=== PATIENT | male | born 1980 | race Caucasian/White ===

== ENCOUNTER 2017-07-06 15:30 | Emergency (ER) | payer SELFPAY ==
[~2017-07-06] VITALS: Ht 180.3 cm; Wt 83.0 kg
[2017-07-06 15:32] VITALS: BP 107/57; PULSE 80; RESP 17; TEMP 98.4; O2SAT 98
== END 2017-07-06 17:00 | disposition left against medical advice (07) ==
LOC: NED 15:30
DX: M79.606 Pain in leg, unspecified (principal); Z53.21 Procedure and treatment not carried out due to patient leaving prior to being seen by health care provider
CPT/HCPCS: 99281

== ENCOUNTER 2017-07-19 09:10 | Emergency (ER) | payer SELFPAY ==
[~2017-07-19] VITALS: Ht 185.4 cm; Wt 82.0 kg
--- NOTE | 2017-07-19 10:24 | PD ---
HPI Chief Complaint: Psychiatric Symptoms Time Seen by Provider: :33 Travel History International Travel<30 days: No Contact w/Intl Traveler<30days: No Traveled to known affect area: No History of Present Illness HPI 37-year-old male presents to the ED seeking voluntary psychiatric evaluation. Patient endorses psychiatric history of schizophrenia. He states he has not taken any medication since February. He states that he has been homeless for the same period of time. He states that he has been hearing voices. The voices do not direct him to commit any acts. He endorses suicidal ideation without a specific plan. He states that he feels as if he has been betrayed. He denies any alcohol use or illicit drug use. Denies any somatic complaints. PFSH Past Medical History ?: Not Social History Tobacco Use: Yes Allergies-Medications Reported Meds & Prescriptions Reported Meds & Active Scripts Active Reported Invega Trinza Inj (Paliperidone Palmitate) 273 Mg/0.875 Ml Inj 273 Mg IM Q90D Buspirone (Buspirone HCl) 5 Mg Tab 5 Mg PO BID Review of Systems Except as stated in HPI: all other systems reviewed are Neg Physical Exam Narrative GENERAL: Well-nourished, well-developed white male no acute distress. PSYCH: Somewhat disorganized. Cooperative. SKIN: Focused skin assessment warm/dry. HEAD: Normocephalic. EYES: No scleral icterus. No injection or drainage. NECK: Supple, trachea midline. No JVD or lymphadenopathy. CARDIOVASCULAR: Regular rate and rhythm without murmurs, gallops, or rubs. RESPIRATORY: Breath sounds clear and equal bilaterally. No accessory muscle use. GASTROINTESTINAL: Abdomen soft, non-tender, nondistended. Active bowel sounds. MUSCULOSKELETAL: No cyanosis, or edema. Walks with a normal gait. BACK: Nontender without obvious deformity. No CVA tenderness. Data Data Last Documented VS Vital Signs Date Time Temp Pulse Resp B/P (MAP) Pulse Ox O2 Delivery O2 Flow Rate FiO2 07/19/17 17:32 07/19/17 14:23 58 16 98 Room Air Orders Orders Complete Blood Count With Diff (07/19/17 09:33) Comprehensive Metabolic Panel (07/19/17 09:33) Thyroid Stimulating Hormone (07/19/17 09:33) Psych Screen (07/19/17 09:33) Drug Screen, Random Urine (07/19/17 09:33) Alcohol (Ethanol) (07/19/17 09:33) Diet Regular Basic (07/19/17 Lunch) Diet Regular Basic (07/19/17 Dinner) Labs Laboratory Tests Test 07/19/17 09:50 07/19/17 11:33 White Blood Count 9.4 TH/MM3 Red Blood Count 5.54 MIL/MM3 Hemoglobin 16.9 GM/DL Hematocrit 49.5 % Mean Corpuscular Volume 89.5 FL Mean Corpuscular Hemoglobin 30.5 PG Mean Corpuscular Hemoglobin Concent 34.1 % Red Cell Distribution Width 13.3 % Platelet Count 236 TH/MM3 Mean Platelet Volume 9.2 FL Neutrophils (%) (Auto) 71.6 % Lymphocytes (%) (Auto) 21.1 % Monocytes (%) (Auto) 5.8 % Eosinophils (%) (Auto) 1.1 % Basophils (%) (Auto) 0.4 % Neutrophils # (Auto) 6.7 TH/MM3 Lymphocytes # (Auto) 2.0 TH/MM3 Monocytes # (Auto) 0.5 TH/MM3 Eosinophils # (Auto) 0.1 TH/MM3 Basophils # (Auto) 0.0 TH/MM3 CBC Comment DIFF FINAL Differential Comment Blood Urea Nitrogen 15 MG/DL Creatinine 0.96 MG/DL Random Glucose 87 MG/DL Total Protein 6.8 GM/DL Albumin 4.0 GM/DL Calcium Level 9.0 MG/DL Alkaline Phosphatase 60 U/L Aspartate Amino Transf (AST/SGOT) 15 U/L Alanine Aminotransferase (ALT/SGPT) 21 U/L Total Bilirubin 0.3 MG/DL Sodium Level 141 MEQ/L Potassium Level 4.2 MEQ/L Chloride Level 105 MEQ/L Carbon Dioxide Level 27.5 MEQ/L Anion Gap 9 MEQ/L Estimat Glomerular Filtration Rate 87 ML/MIN Thyroid Stimulating Hormone 3rd Gen 1.440 uIU/ML Ethyl Alcohol Level LESS THAN 3 MG/DL Urine Opiates Screen NEG Urine Barbiturates Screen NEG Urine Amphetamines Screen NEG Urine Benzodiazepines Screen NEG Urine Cocaine Screen NEG Urine Cannabinoids Screen NEG MDM Medical Decision Making Medical Screen Exam Complete: Yes Emergency Medical Condition: Yes Differential Diagnosis Adjustment disorder versus anxiety versus bipolar versus depression versus dementia versus electrolyte disorder versus malingering versus mood disorder versus ODD versus psychosis versus PTSD versus schizophrenia versus schizoaffective disorder versus substance-induced mood disorder versus other Narrative Course 37-year-old male with PMH of schizophrenia presents to the ED for voluntary psychiatric evaluation. He endorses suicidal ideation with no specific plan. Denies somatic complaints. Physical exam is unremarkable. Lab work without concerning abnormalities. Tox screen negative. Patient is medically clear for psychiatric evaluation. 1740 2 PM: Patient was evaluated by Raquel Stubbs, senior brand manager. Patient is deemed clear for discharge. He is diagnosed with schizophrenia and follow-up as planned with act. Patient is stable and discharged home. Diagnosis Primary Impression: Medical clearance for psychiatric admission Additional Impression: Schizophrenia Qualified Codes: F20.9 - Schizophrenia, unspecified Referrals: [facility] Additional Instructions: Follow-up with act as discussed. Return to the ED for any urgent or emergent medical condition. Disposition: 01 DISCHARGE HOME Condition: Stable Elvira Deleon July 19, 2017 10:24
[2017-07-19 10:27] LABS: AUTOMATED NEUTROPHIL # 6.7 TH/MM3 (1.8-7.7); BASOPHIL % 0.4 % (0.0-2.0); EOSINOPHIL # 0.1 TH/MM3 (0-0.4); EOSINOPHIL % 1.1 % (0.0-4.0); HEMATOCRIT 49.5 % (39.0-51.0); HEMOGLOBIN 16.9 GM/DL (13.0-17.0); LYMPH % 21.1 % (9.0-44.0); MEAN CELL VOLUME 89.5 FL (80.0-100.0); MEAN CORPUSCULAR HEMOGLOBIN 30.5 PG (27.0-34.0); MEAN CORPUSCULAR HGB CONC 34.1 % (32.0-36.0); MEAN PLATELET VOLUME 9.2 FL (7.0-11.0); MONO % 5.8 % (0.0-8.0); MONOCYTE # 0.5 TH/MM3 (0-0.9); NEUT % 71.6 % (16.0-70.0); PLATELET COUNT 236 TH/MM3 (150-450); RED BLOOD COUNT 5.54 MIL/MM3 (4.50-5.90); RED CELL DISTRIBUTION WIDTH 13.3 % (11.6-17.2)
[2017-07-19 10:29] LABS: WHITE BLOOD COUNT 9.4 TH/MM3 (4.0-11.0)
[2017-07-19] MEDS ORDERED: PALI1INJ IM (10:55)
[2017-07-19] MEDS ORDERED: BUSP5TAB PO (10:55)
[2017-07-19 11:06] LABS: ALKALINE PHOSPHATASE 60 U/L (45-117); AST (GOT) 15 U/L (15-37); BICARBONATE 27.5 MEQ/L (21.0-32.0); CHLORIDE 105 MEQ/L (98-107); CREATININE 0.96 MG/DL (0.60-1.30); GLOMERULAR FILTRATION RATE 87 ML/MIN (>89); GLUCOSE,RANDOM 87 MG/DL (74-106); SODIUM (NA) 141 MEQ/L (136-145); TOTAL BILIRUBIN ADULT 0.3 MG/DL (0.2-1.0); TOTAL PROTEIN 6.8 GM/DL (6.4-8.2)
[2017-07-19 11:09] LABS: ALT (GPT) 21 U/L (12-78); BLOOD UREA NITROGEN 15 MG/DL (7-18)
[2017-07-19 14:23] VITALS: BP 109/54; PULSE 58; RESP 16; O2SAT 98
--- NOTE | 2017-07-19 17:49 | PD ---
History of Present Illness Chief Complaint: Psychiatric Symptoms Time Seen by Provider: 17:05 Travel History International Travel<30 Days: No Contact w/Intl Traveler<30days: No Known affected area: No Legal Status Legal Status: Voluntary History of Present Illness: History of Present Illness HPI 37-year-old, , single, homeless male, with self-reported history of schizophrenia who presents to the ED seeking voluntary psychiatric evaluation. Patient reports that he was at [employer] and he felt like he was "having a mental breakdown" and therefore he asked 1 of the employees of that store to call the ambulance. When asked to describe what he meant by a mental breakdown he states" I was mostly outbursting not talking to people". He denies that he was yelling or in anyway behaving agitated or threatening. He goes on to state " I'm feeling much better now and I have slowed down a lot". He reports he last took psychiatric medications in February and that the medication was Invega. He does not remember the dose. He also reports that he has been homeless since February. The patient was monitored in ED and in J pod and he presented now behavioral concerns. Electronic medical record is reviewed. Patient was seen in the ED at the beginning of July for complains of pain in his leg but he left without being seen. Current toxicology is negative. The patient is seen in J pod. Nurse Menchaca is present. The patient is alert and oriented. His speech is clear. He is engaging and cooperative. He gives a history of having left [place] in the year 1999 to travel the [facility] Since then he was in [place] until 2006, in [place] in 2009, back to [place] in 2010 where he stayed for the past 6-7 years. He came to [place] in May and has been in [place]. He arrived in [facility] and July 04. The patient currently denies any hallucinations and he does not appear internally stimulated. He denies any suicidal or homicidal ideation, intent or plan. I have asked him if he wanted to get back on medications but he declines. He once again tells me that he feels a lot better and that he is ready for discharge. In terms of legal history he tells me that he was incarcerated in 2009 after he was charge with shoplifting. He states that it was at that time while he was at [facility] that he was diagnosed with schizophrenia. [facility] Past Medical History ?: Not Psychiatric History Psychiatric History Hx Psychiatric Treatment: Reports diagnosed with schizophrenia in 2009. He states he has received medications including Prolixin, Haldol, Invega, BuSpar and Wellbutrin. His last medication was Invega injection in February. Denies any hospitalization except for a 3 month hospitalization at [facility] in [place] while he was declared incompetent to stand trial for burglary History of Inpatient Treatment: Yes Guns or firearms in home: No Social History Single, homeless. Born in [place]. Left [place] in May and travel to [place]. States he has 1 brother. He is on SSI. Hx Alcohol Use: Yes Hx Tobacco Use: Yes Hx Substance Use: Yes (PT DENIES) Substance Use Type: Alcohol Other Substances Used: Denies that he drinks on a daily basis Hx of Substance Use Treatment: No Family Psychiatric History None reported Allergies-Medications Reported Meds & Prescriptions Reported Meds & Active Scripts Active Reported Invega Trinza Inj (Paliperidone Palmitate) 273 Mg/0.875 Ml Inj 273 Mg IM Q90D Buspirone (Buspirone HCl) 5 Mg Tab 5 Mg PO BID Review of Systems Musculoskeletal: COMPLAINS OF: Muscle aches (In his lower extremities) Integumentary: COMPLAINS OF: Rash (In his feet) Mental Status Examination Appearance: Dirty, Disheveled (Sunburned [facility]), Malodorous Consciousness: Alert Orientation: x4 Motor Activity: Normal gait Speech: Unremarkable Language: Adequate Fund of Knowledge: Adequate Attention and Concentration: Adequate Memory: Unremarkable Mood: Appropriate Affect: Appropriate Thought Process & Associations: Intact Thought Content: Bizarre thinking (That he is involved in some type of work called a [employer] program.) Hallucination Type: None (He denies and does not appear internally preoccupied) Delusion Type: None Suicidal Ideation: No Suicidal Plan: No Suicidal Intention: No Homicidal Ideation: No Homicidal Plan: No Homicidal Intention: No Insight: Poor Judgment: Adequate [facility] Medical Decision Making Medical Record Reviewed: Yes Assessment/Plan 37-year-old single, homeless male. He is originally from [facility]. He reports that he left [place] to travel to [place] having arrived here in May. He has been to [place] and now finds himself at [facility] since July 04. He gives a history of having been traveling throughout the [place] since the year 1999. He does state he is involved in a [employer] program. Although the patient presents some odd thoughts he does not appear to be responding to internal stimuli. He denies hearing voices. He denies any suicidal or homicidal ideation, intent or plan. He is at this time refusing to accept medication that is offered to him. He does not at this time meet criteria for [facility]. He is requesting to be discharged and I have no basis to retain him here against his will. He will be provided the numbers for [facility] if he were to choose to seek treatment in the future. Orders Orders Complete Blood Count With Diff (07/19/17 09:33) Comprehensive Metabolic Panel (07/19/17 09:33) Thyroid Stimulating Hormone (07/19/17 09:33) Psych Screen (07/19/17 09:33) Drug Screen, Random Urine (07/19/17 09:33) Alcohol (Ethanol) (07/19/17 09:33) Diet Regular Basic (07/19/17 Lunch) Diet Regular Basic (07/19/17 Dinner) Ed Discharge Order (07/19/17 17:43) Results Vital Signs Date Time Temp Pulse Resp B/P (MAP) Pulse Ox O2 Delivery O2 Flow Rate FiO2 07/19/17 17:32 07/19/17 14:23 58 16 109/54 (72) 98 Room Air Laboratory Tests Test 07/19/17 09:50 07/19/17 11:33 White Blood Count 9.4 Red Blood Count 5.54 Hemoglobin 16.9 Hematocrit 49.5 Mean Corpuscular Volume 89.5 Mean Corpuscular Hemoglobin 30.5 Mean Corpuscular Hemoglobin Concent 34.1 Red Cell Distribution Width 13.3 Platelet Count 236 Mean Platelet Volume 9.2 Neutrophils (%) (Auto) 71.6 Lymphocytes (%) (Auto) 21.1 Monocytes (%) (Auto) 5.8 Eosinophils (%) (Auto) 1.1 Basophils (%) (Auto) 0.4 Neutrophils # (Auto) 6.7 Lymphocytes # (Auto) 2.0 Monocytes # (Auto) 0.5 Eosinophils # (Auto) 0.1 Basophils # (Auto) 0.0 CBC Comment DIFF FINAL Differential Comment Blood Urea Nitrogen 15 Creatinine 0.96 Random Glucose 87 Total Protein 6.8 Albumin 4.0 Calcium Level 9.0 Alkaline Phosphatase 60 Aspartate Amino Transf (AST/SGOT) 15 Alanine Aminotransferase (ALT/SGPT) 21 Total Bilirubin 0.3 Sodium Level 141 Potassium Level 4.2 Chloride Level 105 Carbon Dioxide Level 27.5 Anion Gap 9 Estimat Glomerular Filtration Rate 87 Thyroid Stimulating Hormone 3rd Gen 1.440 Ethyl Alcohol Level LESS THAN 3 Urine Opiates Screen NEG Urine Barbiturates Screen NEG Urine Amphetamines Screen NEG Urine Benzodiazepines Screen NEG Urine Cocaine Screen NEG Urine Cannabinoids Screen NEG Diagnosis Primary Impression: Medical clearance for psychiatric admission Additional Impression: Schizophrenia Psychiatrically Cleared: Yes Referrals: [facility] Additional Instructions: Follow-up with chika as discussed. Return to the ED for any urgent or emergent medical condition. Med/ Other Pt Specific Info: No Meds Exist/No RX given Disposition: 01 DISCHARGE HOME Condition: Stable Problem Qualifiers Additional Impression: Schizophrenia Qualified Codes: F20.9 - Schizophrenia, unspecified Raquel Stubbs [facility] July 19, 2017 17:49
== END 2017-07-19 17:53 | disposition home or self-care (01) ==
LOC: NEPJ 09:10
DX: F20.9 Schizophrenia, unspecified (principal); Z59.0 Homelessness; Z79.899 Other long term (current) drug therapy
CPT/HCPCS: 80053; 80307; 84443; 85025; 99283